=== PATIENT | male | born 2000 | race Caucasian/White ===

== ENCOUNTER 2025-03-05 06:13 | Emergency (ER) | payer OTHER, SELFPAY ==
[2025-03-05 06:22] VITALS: BP 125/81; PULSE 108; RESP 20; TEMP 36.1; O2SAT 99; BMI 31.6
--- NOTE | 2025-03-05 06:28 | PC.NURSE ---
triage pt in room, awaiting to be seen
--- OUTSIDE RECORDS SUMMARY | 2025-03-05 06:43 | XMS_ITS | Encounter Summary ---
Author Organization [facility] Address [address] [place] [phone] Phone Care Team Providers Care English As A Second Language Teacher Name Role Phone Ernie Hills MD Primary Care Provider Fantasma parikh Encounter Details Date Type Department Care Team (Late st Contact Info) Description 12/11/2017 Conversion Encounter [facility] [address] [address] Ernie Hills MD Social History Tobacco Use Types Packs/Day Years Used Date Smoking Tobacco: Never Assessed Sex and Gender Information Value Date Recorded Sex Assigned at Not on file Legal Sex Male 6:10 PM EDT Gender Identity Not on file Sexual Orientation Not on file documented as of this encounter Plan of Treatment Not on file documented as of this encounter Visit Diagnoses Not on filedocumented in this encounter Care Teams English As A Second Language Teacher Relationship Specialty Start Date End Date Ernie Hills MD PCP - General 11/30/17 documented as of this encounter
--- OUTSIDE RECORDS SUMMARY | 2025-03-05 06:43 | XMS_ITS | Clinical Summary ---
Author Organization [facility] Address [address] [place] [address] Care Team Providers Care Career Technical Education Instructor Name Role Phone Unavailable Primary Care Provider Unavailabl e Allergies No known active allergies Medications * This document contains information received from the source organization and may not represent a complete record from that organization. Ventolin HFA 90 mcg/actuation inhaler Inhale 2 puffs by mouth every 6 hours as needed for wheezing or shortness of breath. 3 Active buPROPion XL (WELLBUTRIN XL) 150 mg tablet Take 150 mg by mouth every morning. 3 Active cloNIDine (CATAPRES) 0.2 mg tablet Take 0.2 mg by mouth 2 times a day. 3 Active OXcarbazepine (TRILEPTAL) 150 mg tablet Take 150 mg by mouth 2 times a day. 3 Active traZODone (DESYREL) 50 mg tablet Take 50 mg by mouth nightly. 3 Active Social History Tobacco Use Types Packs/Day Years Used Date Smoking Tobacco: Unknown Tobacco Cessation:Counseling Given: Not Answered Alcohol Use Standard Drinks/Week Comments Defer 0 (1 standard drink = 0.6 oz pur e alcohol) Sex and Gender Information Value Date Recorded Sex Assigned at Not on file Legal Sex Male 2:55 AM EDT Gender Identity Not on file Sexual Orientation Not on file Last Filed Vital Signs Vital Sign Reading Time Taken Comments Blood Pressure 129/90 06/20/2023 10:38 AM EST Pulse 104 06/20/2023 10:38 AM EST Temperature 36.6 C (97.8 F) 06/20/2023 8:30 AM EST Respiratory Rate 18 06/20/2023 10:38 AM EST Oxygen Saturation 96% 06/20/2023 10:38 AM EST Inhaled Oxygen Concentration - - Weight 95.3 kg (210 lb) 06/20/2023 8:30 AM EST Height 180.3 cm (5' 11 ) 06/20/2023 8:30 AM EST Body Mass Index 29.29 06/20/2023 8:30 AM EST Plan of Treatment Health Maintenance Due Date Last Done Comments HIV Screening 1999 COVID-19 Vaccine (2 - 2023-2 5 season) 2024 12/26/2020 Alcohol/Substance Use Screening 07/25/2024 Influenza Vaccine (#1) 2025 5, 04/09/2013, 04/21/2012, Additional history exists DTaP,Tdap,and Td Vaccines (8 - Td or Tdap) 12/07/2026 12/07/2016, 10/19/2010, 10/16/2004, Additional history exists RSV Vaccine (60+ years old a nd patients) (1 - 1-dose 75+ series) 10/17/2074 Pneumococcal Vaccine: Pediat zack (0-5 Years) and At-Risk Patients (6-50 Years) Completed 10/25/2000, 07/06/2000, 05/10/2000 Varicella Vaccines Completed 05/21/2008, 10/25/2000 HPV Vaccines Completed 09/03/2014, 03/25, 11/02/2013 Hepatitis B Vaccines Completed 12/07/2016, 07/06/2000, 01/04/2000, Additional history exists Insurance [facility] MEDICAID
--- OUTSIDE RECORDS SUMMARY | 2025-03-05 06:43 | XMS_ITS ---
Author Name [facility] Organization Unknown Care Team Organization Name Specialty Phone Email Start Date End Da te [facility] Chris Wynne DO Primary Care 09/29/202202/22 [facility] NULL Primary Care 06/01/2022 03/12/2024
--- OUTSIDE RECORDS SUMMARY | 2025-03-05 06:43 | XMS_ITS | Clinical Summary ---
Author Organization [facility] Address [facility] [email or web address] [address] [address] Phone Care Team Providers Care Blind Aide Name Role Phone Chris Wynne DO Primary Care Provider [phone] Medications albuterol (VENTOLIN HFA) 90 mcg/actuation inhaler Inhale 2 puffs into the lungs every 6 (six) hours as needed. 05/07/2023 Active buPROPion (WELLBUTRIN XL) 150 MG ER 24 hr tablet Take 150 mg by mouth every morning. 10/20/2022 Active cloNIDine HCL (CATAPRES) 0.2 MG tablet Take 0.2 mg by mouth 2 (two) times a day. Active lamoTRIgine (LAMICTAL) 100 MG IMMEDIATE release tablet 12/17/2023 Acti ve LORazepam (ATIVAN) 0.5 MG tablet Take 1 tablet by mouth every morning. 10/25/2023 Active sertraline (ZOLOFT) 50 MG tablet 10/05/2023 Active traZODone (DESYREL) 50 MG tablet Take 50 mg by mouth nightly at bedtime. at bedtime. Active albuterol 90 mcg/actuation inhalerIndicati ons:Other asthma,Medicati on refill Inhale 2 puffs into the lungs every 6 (six) hours as needed for wheezing. 18 g 1 12/23/2023 Active Active Problems No known active problems Social History Tobacco Use Types Packs/Day Years Used Date Smoking Tobacco: Never Assessed Education Answer Date Recorded Are you interested in more education? Not on philipp e 02/15/2025 Are you concerned about learning? Not on file 02/15/2025 No 02/15/2025 No 02/15/2025 Digital Access Answer Date Recorded No 02/15/2025 No 02/15/2025 Reliable internet access at home? Not on file 02/15/2025 Device with a working camera? Not on file Sex and Gender Information Value Date Recorded Sex Assigned at Not on file Legal Sex Male 7:13 PM EDT Gender Identity Not on file Sexual Orientation Not on file Plan of Treatment Not on file Medical Devices Not on file Insurance [facility] [facility] O [facility] O Care Teams Blind Aide Relationship Specialty Start Date End Date Chris Wynne DO [address] [place] [address] PCP - General 10/13/23 Additional Source Comments The information contained in this document represents components of the legal health record. It is not the complete legal health record.[facility]
--- OUTSIDE RECORDS SUMMARY | 2025-03-05 06:43 | XMS_ITS | Clinical Summary ---
Author Organization [facility] Address [address] [place] [address] Care Team Providers Care Railroad Car Cleaning Supervisor Name Role Phone Jojo Poe MD Primary Care Provider Medical History Medical History Date Comments Anxiety 04/03/2019 DX:Anxiety Depression 04/03/2019 DX:Depression Anger reaction 04/03/2019 DX:Anger reactio n Family History Medical History Relation Name Comments COPD Father ?colon cancer? diagnosed early 50s Diabetes Maternal Grandmother Other: addiiction Mother Relation Name Status Comments Father Alive Maternal Grandmother Alive Mother Alive Social History Tobacco Use Types Packs/Day Years Used Date Smoking Tobacco: Every Day Smokeless Tobacco: Never Alcohol Use Standard Drinks/Week Comments No 0 (1 standard drink = 0.6 oz pur e alcohol) Sex and Gender Information Value Date Recorded Sex Assigned at Not on file Legal Sex Male 2:02 PM EST Gender Identity Not on file Sexual Orientation Not on file Obstetrics History Plan of Treatment Health Maintenance Due Date Last Done Comments HPV Vaccines (1 - Male 3-dos e series) 10/17/2014 Hepatitis B Vaccines (2 of 3 - 3-dose series) 01/04/2017 12/07/2016 IPV Vaccines (2 of 3 - 4-dos e series) 01/04/2017 12/07/2016 COVID-19 Vaccine ( - 2023-2 5 season) 2024 Depression Screening 07/25/2024 Influenza Vaccine (#1) 2025 DTaP,Tdap,and Td Vaccines (2 - Tdap) 12/07/2026 12/07/2016 Meningococcal ACWY Vaccine Completed 11/19/2015 HIB Vaccines Aged Out No longer eligi ble based on patient's age to complete this topic Hepatitis A Vaccines Aged Out No long er eligible based on patient's age to complete this topic MMR Vaccines Aged Out No longer eligi ble based on patient's age to complete this topic Meningococcal B Vaccine Aged Out No l onger eligible based on patient's age to complete this topic Pneumococcal Vaccine: Pediat rics (0 to 5 Years) and At-Risk Patients (6 to 49 Years) Aged Out No longer eligi ble based on patient's age to complete this topic RSV Immunization Patients Un ofelia 20 months Aged Out No longer eligible b ased on patient's age to complete this topic Varicella Vaccines Aged Out No longer eligible based on patient's age to complete this topic Care Teams Railroad Car Cleaning Supervisor Relationship Specialty Start Date End Date Jojo Poe MD PCP - General Internal Medicine 08/22/19
--- NOTE | 2025-03-05 08:02 | ED_ITS ---
HPI - Extremity Problem General Chief complaint: Extremity Injury, Lower Stated complaint: foot inj Time Seen by Provider: 03/05/25 07:55 Source: patient and old records reviewed Mode of arrival: ambulatory Limitations: no limitations History of Present Illness ED Provider: CONSUELO HPI Narrative: 24 yo male with no sig PMH his mom has MS but he has no hx. He notes about two weeks ago he was sitting jimbo cross apple sauce for many hours then when he went to get up his foot didn't work. He was seen at [facility] and xrays were fine. He notes it's been 2 weeks he has not seen his PCP and he thought it would be better by now. He is in a walking boot now. He was not trialed on any nerve meds or prednisone. He can feel and wiggle his toes which is improved. 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 Onset (ago): week(s) (2) Pain Consistency: constant Location: left and lower extremity Radiation: none Relieving factors: nothing Exacerbating factors: weight bearing and walking Associated symptoms: denies other symptoms Context: other Related Data Previous Rx's ?Medication ?Instructions ?Recorded prednisone 20 mg tablet 40 mg (2 x 20 mg) PO DAILY 5 days 03/05/25 #10 tabs Allergies Allergy/AdvReac Type Severity Reaction Status Date / Time cat dander (CATS) Allergy Unknown DIFFICULTY Verified 03/05/25 06:24 BREATHING ROACHES Allergy Unknown ASTHMA Uncoded 04/10/20 18:15 EXACERBATION Review of Systems Review of Systems: Constitutional : No Fever, No Chills Cardiovascular : No Chest Pain, No SOB, No Dyspnea on Exertion Respiratory : No Cough, No Sputum Gastrointestinal : No Nausea, No Vomiting, No Diarrhea, No abdominal Pain Musculoskeletal : No joint pain, No Myalgias, No Joint Swelling Skin : No Skin Lesions, No rash Neuro : pos Weakness, pos Numbness All other systems reviewed and are negative [facility] Past Medical History Attestation statement: The following information was validated with the patient. Medical History Foot drop, left Social History Social History (Updated 03/05/25 @ 08:49 by Shayy Key DO) Patient Tobacco Use Status: Current someday Tobacco user Substance Use Type: Crack/Cocaine Physical Exam Vital Signs: Vital Signs: Last Vital Signs Temp 97.0 F 03/05/25 06:22 Pulse 108 H 03/05/25 06:22 Resp 20 03/05/25 06:22 BP 125/81 03/05/25 06:22 Pulse Ox 99 03/05/25 06:22 O2 Del Method Room Air 03/05/25 06:22 BMI result Body Mass Index 31.6 Appearance: Alert. Oriented X3. No acute distress. Eyes: Pupils equal, round and reactive to light. ENT: Pharynx normal. Neck: Normal inspection. CVS: Pulses normal. Respiratory: No respiratory distress. Abdomen: Soft and nontender. Skin: Skin warm and dry. Normal skin color. Extremities: No lower extremity edema. L foot drop can plantarflex but no dorsiflexion has some wiggling of toes and able to raise but minimal, tingling in foot, pulses intact, warm to touch. compartments soft and compressible Neuro: Oriented X 3. No motor deficit. No sensory deficit. Medical Decision Making Medical Decision Making MDM Narrative: 24 yo male with PMH of L foot drop - s/p compressive episode it is improving but has been 2 weeks he has a PCP will continue boot and and trial prednisone. He has no other lesions or deficits but given hx of MS in family instructed him he needs to see his PCP Differential Diagnosis Differential Diagnoses: The differential diagnosis associated with the presentation includes peripheral nerve compression Tests considered The following testing was considered but not selected: MRI/labs but no other deficits so not indicated 2 weeks old can follow up with PCP had compressive event Prescription Management I considered prescription management with: Other Discharge Plan Discharge Clinical Impression: Foot drop, left Patient Disposition: Home, Self-Care Instructions: Foot Drop (ED) Additional Instructions: continue to wear your boot return for any unusual symptoms as well you need EMG likely via your primary care please call them take prednisone with food Prescriptions: New prednisone 20 mg tablet 40 mg PO DAILY 5 Days Qty: 10 0RF Stand Alone Forms: Work/School Release Print Language: S[place]
== END 2025-03-05 08:50 | disposition home or self-care (01) ==
PROVIDERS: Emergency Provider Emergency Medicine
DX: M21.372 Foot drop, left foot (principal); R53.1 Weakness
CPT/HCPCS: 99283; 99284